=== PATIENT | male | born 1960 | race Caucasian/White ===

== ENCOUNTER 2017-05-18 06:00 | Day surgery (SDC) | payer BC ==
[~2017-05-18] VITALS: Ht 177.8 cm; Wt 80.7 kg
[2017-05-18] MEDS ORDERED: BUPIVACAINE HCL 0.5% (5MG/ML) 50ML ONE (06:55)
[2017-05-18] MEDS ORDERED: SKIN ADHESIVE 0.7 GM EA TOP ONE (06:55)
[2017-05-18] MEDS ORDERED: LACTATED RINGERS 1,000 ML IV SCH (08:50)
[2017-05-18] MEDS ORDERED: MIDAZOLAM HCL 2 MG/2 ML VIAL ONE (11:18)
[2017-05-18] MEDS ORDERED: FENTANYL CITRATE/PF 50MCG/ML 2ML VIAL ONE (11:18)
[2017-05-18] MEDS ORDERED: LABETALOL HCL 20MG/4ML CARPUJECT IV PRN (11:45)
[2017-05-18] MEDS ORDERED: ONDANSETRON HCL 4MG/2ML VIAL IV PRN (11:45)
[2017-05-18] MEDS ORDERED: MEPERIDINE HCL/PF 25MG/ML CPJ IV PRN (11:45)
[2017-05-18] MEDS ORDERED: HYDROMORPHONE HCL/PF 2MG/ML CPJ IV PRN (11:45)
[2017-05-18] MEDS ORDERED: SUCCINYLCHOLINE CHLORIDE 200MG/10ML VIAL IV ONE (12:03)
[2017-05-18] MEDS ORDERED: LIDOCAINE HCL 1% 20ML VIAL (Pyxis) INJ ONE (12:03)
[2017-05-18] MEDS ORDERED: PROPOFOL 200MG/20ML VIAL IV ONE (12:03)
[2017-05-18] MEDS ORDERED: GLYCOPYRROLATE 0.2 MG/ML 2ML VIAL ONE (12:03)
[2017-05-18] MEDS ORDERED: SODIUM CHLORIDE 0.9% 10ML VIAL ONE (12:03)
[2017-05-18] MEDS ORDERED: CEFAZOLIN SODIUM 1000MG/VIAL ONE (12:03)
[2017-05-18] MEDS ORDERED: DEXAMETHASONE 4MG/ML 1ML VIAL ONE (12:03)
[2017-05-18] MEDS ORDERED: NEOSTIGMINE METHYLSULFATE 1MG/ML 10 ML VIAL ONE (12:03)
[2017-05-18] MEDS ORDERED: ROCURONIUM BROMIDE 10MG/ML VIAL 5ML IV ONE (12:03)
[2017-05-18 14:10] VITALS: BP 110/71
== END 2017-05-18 17:00 | disposition home or self-care (01) ==
LOC: OR 06:00
PROVIDERS: ATTEND Surgery
DX: K40.90 Unilateral inguinal hernia, without obstruction or gangrene, not specified as recurrent (principal); M17.11 Unilateral primary osteoarthritis, right knee; Z98.890 Other specified postprocedural states; Z79.01 Long term (current) use of anticoagulants
CPT/HCPCS: 49650; A4216; C1781; G0168; J0330; J0690; J1100; J1170; J2250; J2405; J2710; J3010; J3490; J7120; J2704